=== PATIENT | female | born 1945 | race Caucasian/White ===

== ENCOUNTER 2017-10-20 05:25 | Inpatient (IN) | payer OTHER ==
[2017-10-11 13:24] LABS: HEMATOCRIT 40.8 % (37.0-47.0); HEMOGLOBIN 13.7 gm/dL (12.0-15.0); MCH 31.1 pg (26.0-34.0); MCHC 33.6 g/dL (28.0-37.0); MCV 92.6 fL (80.0-100.0); RBC 4.4 mil/uL (4.20-5.00); RDW 12.2 % (10.5-14.5); URINE BILIRUBIN NEGATIVE (Negative); URINE BLOOD NEGATIVE (Negative); URINE CLARITY CLEAR; URINE COLOR YELLOW; URINE GLUCOSE-RANDOM* NEGATIVE (Negative); URINE KETONES NEGATIVE (Negative); URINE LEUKOCYTES-REFLEX NEGATIVE (Negative); URINE NITRITE-REFLEX NEGATIVE (Negative); URINE PROTEIN (DIPSTICK) NEGATIVE (Negative); URINE UROBILINOGEN 0.2 E.U./dl (0.2-1.0); WBC 4.9 thou/uL (4.0-11.0)
[2017-10-11 13:31] LABS: CALCIUM 9.6 mg/dL (8.5-10.1); POTASSIUM 4.1 mmol/L (3.5-5.1)
[2017-10-11 13:37] LABS: PROTIME 9.9 Seconds (9.3-11.4)
[2017-10-20] VITALS (9 sets, daily range): BP systolic 111–153; BP diastolic 55–87
[~2017-10-20] VITALS: Ht 160 cm; Wt 103.9 kg
--- NOTE | ~2017-10-20 | O ---
[facility] [place] [address] OPERATIVE REPORT Name: SHAEUSEBIO Chaz Room #: 412-P [facility] IN M.R.#: [id number] Admission: 10/20/17 Attend Phys: Cali Bowie Discharge: 10/21/17 Date of : 47 Report #: [id number] THIS REPORT FOR: //name// CC: Mello Wray DATE OF SERVICE: 10/20/2017 PREOPERATIVE DIAGNOSES: Right shoulder osteoarthritis with biceps tendinopathy. POSTOPERATIVE DIAGNOSES: Right shoulder osteoarthritis with biceps tendinopathy. PROCEDURE PERFORMED: Right total shoulder arthroplasty with open biceps tenodesis. SURGEON: Cali Wray M.D. GUEST SERVICES COORDINATOR: Suzie Hennessy PA-C. ANESTHESIA: General with preoperative indwelling interscalene block . FLUIDS: 1000 mL crystalloid. ESTIMATED BLOOD LOSS: Approximately 50 mL. IMPLANTS UTILIZED: DePuy Global Unite stem and proximal body size 10, 135 degree; 48 mm x 18 mm eccentric humeral head and a 44-mm anchor peg glenoid. DESCRIPTION OF PROCEDURE: After proper identification of the patient and operative site in the preoperative holding area, the operative site was signed by myself. Prophylactic antibiotics were given. The patient elected to receive an indwelling interscalene block catheter after reviewing the risks, benefits, alternatives and potential complications with anesthesia. After a satisfactory block, the patient was brought back to the operative suite; and after induction of satisfactory general endotracheal anesthesia, the patient was carefully positioned in the beach chair position with head of the bed elevated to approximately 40 degrees. Care was taken to position the neck in neutral position. The right shoulder was sterilely prepped and draped in the usual manner and final draping was with Ioban. Anterior deltopectoral approach was planned. A FunCaptcha limb positioning system was utilized throughout the entire procedure. Qualified night assistant was utilized throughout the entire procedure to aid in patient limb positioning, visualization and retraction of the soft tissues, instrument passage, closure and sling application. [address] [address] OPERATIVE REPORT Name: EUSEBIO DALTON Room #: 412-P [facility] IN M.R.#: [id number] Admission: 10/20/17 Attend Phys: Cali Bowie Discharge: 10/21/17 Date of : 47 Report #: [id number] Anterior deltopectoral approach was created. Full thickness skin flaps were developed. Cephalic vein was identified and retracted medially. The subdeltoid space was carefully opened. The deltoid was retracted with a [place] deltoid retractor. Significant biceps tenosynovitis and swelling was appreciated. It was tenodesed to the undersurface of the pectoralis major. It was followed proximally. Bicipital groove was opened as well as the rotator interval. At this point, the anterior circumflex vessels were identified, ligated and cauterized. The lesser tuberosity osteotomy was performed with a thin osteotome. Subscapularis was elevated. Very thickened anterior capsule was noted and this was resected carefully under direct visualization. Care was taken to identify and protect the axillary nerve throughout the entire procedure. Peripheral humeral head osteophytes were carefully removed and a humeral head osteotomy was planned at 135 degrees using a cutting guide. Supraspinatus, infraspinatus and teres minor were intact. Head measured 48 mm on the backtable and diameter of 18 mm head best recreated the proximal humeral anatomy. Any remaining peripheral spurs were carefully removed. The shaft was reamed by hand up to a size 10 stem, which matched the preoperative templating. A size 10 broach was placed. Protection plate was placed. Joint was then reduced and distracted with lamina fitting room operator, where the labrum was removed circumferentially. The capsule anteriorly had been excised and inferiorly released off the glenoid. Again, great care was taken to protect the axillary nerve. Advanced degenerative changes were noted on both sides of the joint. A guide pin was then inserted into the glenoid vault. Position was verified by digital palpation and the glenoid was reamed to a size 44. Any remaining soft tissue was carefully removed around the humerus. Step drill was utilized. Central peg was contained. Bone graft was saved for bone grafting peg component of the prosthesis later in the procedure. At this point, the peripheral pegs were drilled. Derotation pegs were utilized. These instruments were then removed. The joint was thoroughly irrigated with normal saline. A 44 mm trial fit and was well seated. This was removed and the trial was removed. This area was thoroughly irrigated with normal saline. FloSeal was utilized. Bone graft and cement was prepared on the back table. FloSeal was irrigated out. This area was then dried out with suction and the peripheral pegs were cemented with the Tuohy syringe under pressurization. Any excess bone cement was removed. Central peg had been bone grafted. Implant was carefully impacted into position and held firmly in place until it was fully seated and the cement had cured. Glenoid implant was stable. Next, the humerus was approached and the head was placed. A 48 x 18 eccentric head provided the best overall fit and had approximately 50% translation posteriorly. Trial implants were removed. The Global Unite brosteotome was inserted. It was seated. Anterior drill holes were placed for four #2 FiberWires that were carefully positioned through the bicipital groove and lesser tuberosity. The inferior two were around the prosthesis which had been assembled on the back table. This was then impacted into position. Head was [facility] [address] [place] [address] OPERATIVE REPORT Name: EUSEBIO DALTON Room #: 412-P [facility] IN M.R.#: [id number] Admission: 10/20/17 Attend Phys: Cali Bowie Discharge: 10/21/17 Date of : 47 Report #: [id number] placed and shoulder was trialled and everything was in satisfactory position. At this point, the subscapularis was reduced after the joint was thoroughly irrigated with antibiotic irrigant. The four #2 FiberWires were passed in a modified Brian-Dinh technique and then the lateral portion of the rotator interval was closed in a simple [id number] manner with #2 FiberWire. The patient could easily be externally rotated to 45 degrees without any undue tension on the repair construct. The wound was again thoroughly irrigated with antibiotic irrigant. One gram of vancomycin powder was utilized, half of this deep and half of it more superficial in closure. Deltopectoral fascia was closed with 0 Vicryl and 2-0 Vicryl. The subcutaneous tissue followed by running 4-0 Monocryl and Dermabond was used to seal the incision. Sterile dressing was applied. The patient will be placed in a sling and abduction pillow for 4 weeks postoperatively. At the time of dictation, the patient was in the operative suite in stable condition with anticipated discharge to recovery room in a stable condition. <ELECTRONICALLY SIGNED> By: Cali Wray MD 10/25/17 1117 1011 1102 Cali Wray MD /nt
--- NOTE | ~2017-10-20 | H ---
[facility] [place] [address] HISTORY AND PHYSICAL Name: EUSEBIO DALTON Room #: 412-P [facility] IN M.R.#: [id number] Admission: 10/20/17 Attend Phys: Cali Bowie Discharge: Date of : 47 Report #: [id number] THIS REPORT FOR: //name// CC: Mello Wray CHIEF COMPLAINT: Right shoulder pain. HISTORY OF PRESENT ILLNESS: The patient complains of persistent right shoulder pain, catching, locking, popping and grinding despite conservative treatments including rest, oral anti-inflammatories. The patient reports that the pain is worse with using it and better with rest. PAST MEDICAL HISTORY: Significant for arthritis. PAST SURGICAL HISTORY: Significant for right total knee arthroplasty, bilateral cataracts, right foot surgery and total hysterectomy. REVIEW OF SYSTEMS: GENERAL: The patient denies fevers, chills, malaise. MUSCULOSKELETAL: The patient complains of joint pain, aches, popping. PULMONARY: The patient denies any recent cough, shortness of breath or chest pain. The remainder of the review of systems was negative. FAMILY HISTORY: Significant for arthritis, heart disease. SOCIAL HISTORY: The patient is right handed. She is , lives alone. Denies any alcohol use. The patient reports that she exercises approximately 5-7 hours per week. MEDICATIONS: Home medications include Tylenol PM, PreserVision, aspirin, CoQ10, omeprazole, Mobic, lovastatin and duloxetine. ALLERGIES: The patient has no known drug allergies. PHYSICAL EXAMINATION: VITAL SIGNS: Height 67 inches, weight 230 pounds, BMI 36. GENERAL: The patient is awake, alert and oriented, in no acute distress. HEENT: Pupils are equal, round, reactive to light. Extraocular movements intact. NECK: Supple, without lymphadenopathy, no bruit. CHEST: Clear to auscultation bilaterally. HEART: Regular rate and rhythm without murmur. ABDOMEN: Soft and nontender to palpation. RIGHT SHOULDER AND EXTREMITIES: Neurovascularly intact. Skin is nontender, dry and intact. Range of motion, flexion to 80 degrees, passive flexion to 120 degrees, external rotation 20 degrees, internal rotation measured to the [facility] [address] [address] HISTORY AND PHYSICAL Name: EUSEBIO DALTON Room #: [facility] IN [facility].#: [id number] Admission: 10/20/17 Attend Phys: Cali Bowie Discharge: Date of : 47 Report #: [id number] crest. Glenohumeral crepitus noted on exam. Tenderness to palpation of the anterolateral shoulder and posterolateral shoulder. No tenderness to palpation of the sternoclavicular joint, clavicle, acromioclavicular joint, acromion, rhomboids or proximal humerus. Supraspinatus strength 5-/5, external rotation strength 5-/5, internal rotation/abdominal compensation strength 5/5, deltoid strength is 5/5. There is positive Neer and positive Davis test. RADIOGRAPHS: Previous radiographs were reviewed and show no significant degenerative change of the acromioclavicular joint. There is type 2 acromion and glenohumeral joint is well reduced with complete loss of glenohumeral joint space noted and a large inferior humeral osteophyte noted as well. IMAGING: Report of the right shoulder performed on 09/19/2017 at [facility] shows severe glenohumeral joint OA. Circumferential labral degeneration or tearing. Generalized rotator cuff tendinosis. Partial subscapularis tendon tear. Moderate joint effusion. Subchondral signal at the superior medial humeral head is likely degenerative. Subchondral osteonecrosis is considered less likely. ASSESSMENT: Right shoulder pain, osteoarthritis; partial thickness subscapularis tear and biceps tendinopathy. PLAN: MRI findings were reviewed in detail with the patient. I have reviewed continued nonoperative management versus operative intervention. The patient elected to proceed with a right total shoulder arthroplasty. The risks, benefits and alternatives to treatment were reviewed. The short term period of hospitalization was reviewed. We have discussed anticoagulation and DVT/PE prophylaxis. We discussed potential time in a sling, need for physical therapy and potential time off work. Preoperatively, the patient will use benzoyl peroxide soap for 7 days preop. Pain management was discussed and pain medicines will be given on the day of surgery. Your anesthesiologist will discuss the utilization of a nerve block. An arthroplasty handout was also provided to the patient and the surgery was demonstrated using a shoulder model. We discussed the need for prophylactic antibiotic treatment for invasive dental procedures postoperatively as well as the need for serial radiographic monitoring every 1-2 years. The patient would like to proceed with above-mentioned procedures. Questions were encouraged, all were answered to the best of my abilities. The patient demonstrated understanding of the above-noted discussion and will plan on proceeding with right total shoulder arthroplasty as scheduled. <ELECTRONICALLY SIGNED> By: MINNIE Wade 10/21/17 0939 0739 0825 MINNIE Wade /nt
--- NOTE | ~2017-10-20 | EKG ---
[place] [address] [facility] [facility] [place] [address] ELECTROCARDIOGRAM REPORT Name: EUSEBIO DALTON [id number] Admission: Attend Phys: Cali Bowie Discharge: Date of : 47 Report #: [id number] THIS REPORT FOR: //name// [facility] [place] [place] Test Date: 2017-10-11 Test Time: 13:01:11 Pat Name: EUSEBIO DALTON Department: Room: Gender: F Media Technician: MAICO BATISTA : 1945 Requested By: Cali Wray Order Number: [id number] MD: Rickie Brooks Measurements Intervals [place] Rate: 74 P: 39 WA: 146 QRS: -45 QRSD: 101 T: 12 QT: 413 QTc: 459 Interpretive Statements Sinus rhythm Left anterior fascicular block Abnormal R-wave progression, late transition Left ventricular hypertrophy No previous ECG available for comparison Electronically Signed On 10-11-2017 16:16:36 EDGER SAW OPERATOR by Rickie Brooks [email or web address] <ELECTRONICALLY SIGNED> By: Rickie Brooks MD, [facility] 10/11/17 1616 1301 1301 Rickie Brooks MD, [facility] /EPI
[~2017-10-20 05:25] MED LIST: APAP650 PO; AREDS-2 PO; ASPIR 8181 MG PO; CO Q-10100 MG PO; CYMBALTA60 MG PO; ERGOCALCIF50000 UNIT PO; HYDROCODONE-AP1 EAC6 PO; LOVASTATIN 20 M20 MG PO; MOBIC15 MG PO; OMEPRAZOLE 20 M20 M1 PO
[2017-10-21 04:31] LABS: HEMATOCRIT 31.1 % (37.0-47.0); HEMOGLOBIN 10.6 gm/dL (12.0-15.0)
[2017-10-21 04:51] LABS: POTASSIUM 3.9 mmol/L (3.5-5.1)
[2017-10-21 05:00] VITALS: BP 131/66
[2017-10-21 09:23] VITALS: BP 145/67
[2017-10-21 13:12] VITALS: BP 145/67
== END 2017-10-21 14:05 | disposition home or self-care (01) | DRG 483 ==
LOC: TBA 05:25 → OR 05:25 → PRE 08:42 → EDSTATUS 09:58 → OR 10:01 → 4N 12:10
PROVIDERS: Orthopaedic Surgery Sports Medicine; Physician Assistant Surgical
DX: M19.011 Primary osteoarthritis, right shoulder (principal); M75.20 Bicipital tendinitis, unspecified shoulder; Z96.651 Presence of right artificial knee joint; S46.011A Strain of muscle(s) and tendon(s) of the rotator cuff of right shoulder, initial encounter; E78.5 Hyperlipidemia, unspecified; F32.9 Major depressive disorder, single episode, unspecified; J45.909 Unspecified asthma, uncomplicated; K21.9 Gastro-esophageal reflux disease without esophagitis; Z88.2 Allergy status to sulfonamides; Z79.899 Other long term (current) drug therapy; Z28.21 Immunization not carried out because of patient refusal; Z98.42 Cataract extraction status, left eye; Z98.41 Cataract extraction status, right eye; Z90.710 Acquired absence of both cervix and uterus; Z82.49 Family history of ischemic heart disease and other diseases of the circulatory system; Z82.61 Family history of arthritis
CPT/HCPCS: 10790; 50010; 50101; 50172; 50386; 50417; 50697; 50733; 50935; 51751; 51771; 52138; 53000; 53078; 54118; 55435; 56521; 56524; 56525; 56526; 56530; 57095; 62110; 62900

== ENCOUNTER → 2020-01-20 | Outpatient (CLI) | payer OTHER ==
[~2020-01-20] MED LIST changes: +ADULT LOW DOSE81 MG PO; +CALCIUM WITH V1 EAC1 PO; +CRESTOR40 MG PO; +HYDROCODON-ACE1 EAC7 PO; +LOVASTATIN40 MG PO; +MELOXICAM15 MG PO; +PRESERVISION A1 EAC2 PO; +TYLENOL EXTRA500 MG PO; +TYLENOL PM EX-1 EACH PO; +VITAMIN D325 MC5 PO; +WOMEN'S 50 PLU1 EAC1 PO
== END ==
LOC: LAB 01-17 10:07
PROVIDERS: ATTEND Student in an Organized Health Care Education/Training Program
DX: Z01.812 Encounter for preprocedural laboratory examination (principal); Z11.59 Encounter for screening for other viral diseases

== ENCOUNTER 2020-01-22 10:32 | Day surgery (SDC) | payer OTHER ==
[2020-01-09 14:48] LABS: URINE BILIRUBIN NEGATIVE (Negative); URINE BLOOD NEGATIVE (Negative); URINE COLOR YELLOW; URINE GLUCOSE-RANDOM* NEGATIVE (Negative); URINE KETONES 1+ (Negative); URINE LEUKOCYTES-REFLEX NEGATIVE (Negative); URINE NITRITE-REFLEX NEGATIVE (Negative); URINE PROTEIN (DIPSTICK) TRACE (Negative); URINE SPECIFIC GRAVITY 1.025 (1.005-1.035)
[2020-01-09 14:50] LABS: URINE CLARITY SL HAZY
[2020-01-09 15:24] LABS: HEMATOCRIT 39.8 % (37.0-47.0); HEMOGLOBIN 13.2 gm/dL (12.0-15.0); MCH 31.9 pg (26.0-34.0); MCHC 33.3 g/dL (28.0-37.0); MCV 95.7 fL (80.0-100.0); RBC 4.15 mil/uL (4.20-5.00); RDW 12.4 % (10.5-14.5); WBC 7.8 thou/uL (4.0-11.0)
[2020-01-09 15:36] LABS: ALBUMIN 4.1 g/dL (3.4-5.0); CREATININE 1.3 mg/dL (0.6-1.0); POTASSIUM 4.8 mmol/L (3.5-5.1)
--- NOTE | 2020-01-09 16:12 | EKG ---
[facility] [place] [address] ELECTROCARDIOGRAM REPORT Name: EUSEBIO DALTON Room #: PRE IN ..#: [id number] Admission: Attend Phys: Dean Manzanares MD Discharge: Date of : 47 Report #: [id number] THIS REPORT FOR: cc: Mello Zhang MD, David L. MD Couchonnal, Luis F. MD ~ THIS REPORT FOR: //name// [facility] Test Date: 2020-01-09 Test Time: 15:12:54 Pat Name: EUSEBIO DALTON Department: Room: Gender: Copy Coordinator: MARIE : 1945 Requested By: Dean Manzanares Order Number: [id number] : Leonel Herrera Measurements Intervals [place] Rate: 71 P: 23 MN: 143 QRS: -42 QRSD: 98 T: 7 QT: 405 QTc: 441 Interpretive Statements Sinus rhythm Left anterior fascicular block Abnormal R-wave progression, late transition Left ventricular hypertrophy Compared to ECG 10/11/2017 13:01:11 No significant changes Electronically Signed On 01-09-2020 16:10:00 CDT by Leonel Herrera [email or web address] <ELECTRONICALLY SIGNED> By: Leonel Herrera MD 01/09/20 1610 151 151 Leonel Herrera MD /EPI
[~2020-01-22] VITALS: Ht 162.6 cm; Wt 103.9 kg
[~2020-01-22 10:32] MED LIST changes: -HYDROCODON-ACE1 EAC7 PO
[2020-01-22 12:34] VITALS: BP 166/76
[2020-01-22 16:30] VITALS: BP 148/88
[2020-01-22 17:08] VITALS: BP 146/65
--- NOTE | 2020-01-22 18:19 | NUR ---
PATIENT TRANSFER FROM PACU TO 439 AT 1630 POST LEFT KNEE RELPACEMENT.ALERT. DROWSE. DENIES [PAIN. COOLING SYSTEM IN PLACE. AFEBRILE.VSS. WILL KEEP MONIOR.
[2020-01-22 18:36] VITALS: BP 131/67
[2020-01-22 19:10] VITALS: BP 138/67
[2020-01-23 00:30] VITALS: BP 123/95
[2020-01-23 05:46] LABS: HEMATOCRIT 35.3 % (37.0-47.0); HEMOGLOBIN 11.7 gm/dL (12.0-15.0); MCH 32.1 pg (26.0-34.0); MCHC 33.2 g/dL (28.0-37.0); MCV 96.8 fL (80.0-100.0); RBC 3.65 mil/uL (4.20-5.00); RDW 12.4 % (10.5-14.5)
[2020-01-23 08:43] VITALS: BP 124/53
--- NOTE | 2020-01-23 10:30 | NUR ---
ASSESSMENT: CM REVIEWED CHART. PT IS ALERT AND ORIENTED X4. PT REPORTS THAT SHE LIVES AT HOME ALONE BUT THAT HER SISTER IS COMING TO STAY WITH HER FOR A WEEK. PT REPORTS SHE HAS NO STEPS TO ENTER HER HOME OR ONCE INSIDE. PT REPORTS SHE ALREADY HAS A CANE AND WALKER AT HOME. PT REPORTS THAT SHE HAS A GRAB BAR AND SHOWER CHAIR. PT REPORTS SHE HAS OUTPATIENT THERAPY ARRANGED AT [facility] TO START ON FRIDAY 01/26. CM NOTIFIED PT TO MAKE SURE SHE DOES NOT DISCHARGE WITHOUT SCRIPT FOR OUTPATIENT PT/OT. PT REPORTS SHE WILL HAVE NO NEEDS FROM CM PRIOR TO DISCHARGE. CM WILL CONTINUE TO FOLLOW TO ASSIST NEEDED. PLANS ARE TO POSSIBLY DISCHARGE TODAY IF SHE DOES WELL WITH THERAPY.
--- NOTE | 2020-01-23 12:09 | O ---
[facility] [place] [address] OPERATIVE REPORT Name: EUSEBIO DALTON Room #: 439-P [facility]..#: [id number] Admission: 01/22/20 Attend Phys: Dean Manzanares MD Discharge: Date of : 47 Report #: [id number] THIS REPORT FOR: cc: Mello Zhang MD, David L. MD Abraham,Dean Hudson MD ~ CC: Mello Manzanares DATE OF SERVICE: 01/22/2020 PREOPERATIVE DIAGNOSIS: Left knee valgus osteoarthritis. POSTOPERATIVE DIAGNOSIS: Left knee valgus osteoarthritis. PROCEDURE: Left total knee arthroplasty using Navio robotic assistance. SURGEON: Dean Manzanares M.D. AGRICULTURE RESEARCH DIRECTOR: Joan Box PA-C. INDICATIONS FOR AGRICULTURE RESEARCH DIRECTOR: Throughout the case, extensive retraction and manipulation of the knee was required. This was afforded to me by my anesthesiologists' assistant. ANESTHESIA: LMA with an adductor canal block. IMPLANTS: Size 5 Journey II BCS cobalt chrome femur, size 3 tibia, size 9 constrained polyethylene and size 32 patella. TOURNIQUET TIME: 57 minutes. ESTIMATED BLOOD LOSS: 25 mL. COMPLICATIONS: None. SPECIMENS: None. CONDITION UPON LEAVING THE OPERATING ROOM: Stable. INDICATIONS FOR PROCEDURE: The patient is a 74-year-old female with left knee valgus osteoarthritis. She had failed conservative measures for this and after discussion with her, she elected for left total knee arthroplasty. DESCRIPTION OF PROCEDURE: Risks, benefits, alternatives, complications were discussed in detail with the patient including but not limited to risk of anesthesia, risk of damage to nerves, arteries, blood vessels, risk for [facility] [address] [place] [address] OPERATIVE REPORT Name: EUSEBIO DALTON Room #: 439-P [facility] M.R.#: [id number] Admission: 01/22/20 Attend Phys: Dean Manzanares MD Discharge: Date of : 47 Report #: [id number] infection, bleeding, risk for continued knee pain, need for reoperation. Informed consent was obtained from the patient. Left knee was appropriately marked in the preoperative holding area. IV Ancef was given for preoperative antibiotics. She was brought to the operating room and placed in supine position on operating room table. LMA anesthesia was induced without complication. Tourniquet was placed on the left thigh. Left lower extremity was prepped and draped in normal sterile fashion. Timeout was performed properly identifying the patient and procedure as well as the instrumentation and implants. All in the operating room were in agreement. Left lower extremity was exsanguinated, tourniquet was inflated. Tourniquet time was 57 minutes. Standard midline approach to the knee was made with 10 blade through the skin. Dissection was taken down sharply to the fascia. Deep flaps were developed medially and laterally. Fresh 10 blade was used to make a medial parapatellar arthrotomy and the knee was inspected. There was severe valgus osteoarthritis of the knee. ACL and PCL were removed sharply. Reference pins were placed in the femur and the tibia. The knee was then digitally mapped using the [employer] robotic system. Intraoperative plan was made. We sized the size 5 femur with a size 3 tibia and a size 10 spacer. After acceptance of the intraoperative plan, the distal femoral cut was made with a Navio bur. Distal femoral cutting block was pinned in place and distal femoral cuts were made. After this, attention was turned to the tibia. The remainder of the menisci removed with Bovie cautery. Tibial resection guide was pinned in place and tibial resection was made. Flexion and extension gaps were then checked and found to have good balance laterally in flexion and extension with a slight laxity medially. It was felt we could make up for this with a constrained implant. The tibia was sized, found to be a size 3. Size 3 tibial trial was placed, pinned and punched. Size 5 femoral trial was placed and the box cut was made. This was then trialled with size 9 polyethylene. Knee was taken through range of motion, found to be stable, found to have a millimeter laxity medially and laterally with a constrained liner. A 9 mm was resected from the posterior surface of the patella and a size 32 patellar trial button was placed. Knee was taken through range of motion, found to be stable, found to have good patellar tracking. Trial components were removed. Bony ends were thoroughly irrigated with normal saline. A final size 3 tibia, size 5 Journey II BCS cobalt chrome femur and a size 32 patella were cemented in place using standard cementation techniques. While the cement cured, a periarticular injection consisting of morphine, ropivacaine, epinephrine and Toradol was placed around the knee joint capsule. After the cement cured, the tourniquet was deflated. Hemostasis was obtained with Bovie cautery. Final size 9 constrained polyethylene was placed. A gram of vancomycin was placed deep in the joint. Fascia was closed with 0 Vicryl, skin was closed with 2-0 Vicryl, skin staple and a HEIDE dressing was [address] [address] OPERATIVE REPORT Name: EUSEBIO DALTON Room #: 439-P [facility]#: [id number] Admission: 01/22/20 Attend Phys: Dean Manzanares MD Discharge: Date of : 47 Report #: [id number] applied. The patient tolerated this procedure well and went to recovery room under care of anesthesia postoperatively. <ELECTRONICALLY SIGNED> By: Dean Manzanares MD 01/23/20 1209 1700 1740 Dean Manzanares MD /nt
[2020-01-23 14:01] VITALS: BP 124/53
--- NOTE | 2020-01-23 14:10 | NUR ---
ASSUMED CARE OF THE PT AT 0700. PT IS STANDBY ASSIST. PAIN CONTROLLED BY PAIN MEDS, SEE EMAR. ORAL CARE IN THE AFTERNOON. POLAR PACK, HEIDE, SCD IN PLACE, VANNA HOSE FOR R LEG IS MISSING, ORDERED ANOTHER VANNA HOSE. L HAND IV DRY AND INTACT. PT WILL D/C TODAY. FALL PRECAUTIONS IN PLACE, BED IN THE LOWEST POSITION AND CALL LIGHT IS WITHIN REACH. WILL CONTINUE TO MONITOR THE PT.
== END 2020-01-23 15:12 | disposition home or self-care (01) ==
LOC: TBA 10:32 → OR 10:32 → TBA 14:04 → EDSTATUS 15:22 → TBA 15:22 → OR 15:26 → 4S 16:15 → OR 01-23 15:12
PROVIDERS: ATTEND Orthopaedic Surgery
DX: M17.12 Unilateral primary osteoarthritis, left knee (principal); M25.562 Pain in left knee; E78.5 Hyperlipidemia, unspecified; K21.9 Gastro-esophageal reflux disease without esophagitis; Z96.651 Presence of right artificial knee joint; Z98.890 Other specified postprocedural states; Z98.41 Cataract extraction status, right eye; Z98.42 Cataract extraction status, left eye; Z90.710 Acquired absence of both cervix and uterus; Z88.2 Allergy status to sulfonamides; Z79.899 Other long term (current) drug therapy; Z11.59 Encounter for screening for other viral diseases
CPT/HCPCS: 10102; 50010; 50101; 50415; 50954; 51130; 51225; 51320; 51412; 52001; 52282; 53000; 53078; 56527; 56528; 57095; 57103; 57110; 57127; 57180; 57952; 62110; 62900; 64039; 70005

== ENCOUNTER 2020-01-25 23:17 | Inpatient (IN) | payer OTHER ==
[~2020-01-25] VITALS: Ht 162.6 cm; Wt 111.0 kg
[2020-01-25 23:20] VITALS: BP 136/88
[2020-01-26 00:18] LABS: ABSOLUTE NEUTROPHILS 7.1 thou/uL (1.4-8.2); BASOPHILS 0.7 % (0.0-2.0); EOSINOPHILS 2.3 % (0.0-3.0); HEMATOCRIT 29.8 % (37.0-47.0); HEMOGLOBIN 10.1 gm/dL (12.0-15.0); LYMPHOCYTES 14.7 % (24.0-44.0); MCH 32.6 pg (26.0-34.0); MCHC 33.9 g/dL (28.0-37.0); MCV 96.2 fL (80.0-100.0); PLATELET COUNT 201 thou/uL (150-400); POLYS 73.3 % (36.0-66.0); RDW 12.7 % (10.5-14.5); WBC 9.7 thou/uL (4.0-11.0)
[2020-01-26 00:21] LABS: CALCIUM 8.4 mg/dL (8.5-10.1); POTASSIUM 4.5 mmol/L (3.5-5.1)
[2020-01-26 00:27] LABS: ALBUMIN 2.8 g/dL (3.4-5.0); DIRECT BILIRUBIN 0.1 mg/dL (<0.1-0.2); TOTAL BILIRUBIN 0.5 mg/dL (0.2-1.0); TOTAL PROTEIN 5.6 g/dL (6.4-8.2)
[2020-01-26 00:45] LABS: URINE BILIRUBIN NEGATIVE (Negative); URINE BLOOD NEGATIVE (Negative); URINE CLARITY CLEAR; URINE COLOR YELLOW; URINE GLUCOSE-RANDOM* NEGATIVE (Negative); URINE KETONES TRACE (Negative); URINE LEUKOCYTES-REFLEX NEGATIVE (Negative); URINE NITRITE-REFLEX NEGATIVE (Negative); URINE PROTEIN (DIPSTICK) TRACE (Negative); URINE SPECIFIC GRAVITY 1.025 (1.005-1.035)
[2020-01-26 05:25] VITALS: BP 105/48
[2020-01-26 05:34] VITALS: BP 103/49
[2020-01-26 06:27] LABS: HEMATOCRIT 27.2 % (37.0-47.0); HEMOGLOBIN 9.3 gm/dL (12.0-15.0); MCH 32.8 pg (26.0-34.0); MCHC 34.2 g/dL (28.0-37.0); RBC 2.83 mil/uL (4.20-5.00); RDW 12.5 % (10.5-14.5)
[2020-01-26 06:35] LABS: CALCIUM 8.6 mg/dL (8.5-10.1)
[2020-01-26 08:04] VITALS: BP 141/58
--- NOTE | 2020-01-26 11:03 | EKG ---
[facility] [place] [address] ELECTROCARDIOGRAM REPORT Name: EUSEBIO DALTON Room #: 459-P ADM IN M.R.#: [id number] Admission: 01/26/20 Attend Phys: Matthew Rust MD Discharge: Date of : 47 Report #: [id number] THIS REPORT FOR: cc: FAM - Family physician unknown FAM - Family physician unknown Leonel Herrera MD ~ THIS REPORT FOR: //name// [facility] ED Test Date: 2020-01-25 Test Time: 23:36:18 Pat Name: EUSEBIO DALTON Department: Room: [facility] Gender: F Leak Inspector: STOLED : 1945 Requested By: Love Treadwell Order Number: [id number] MD: Leonel Herrera Measurements Intervals [place] Rate: 100 P: 49 MA: 135 QRS: -37 QRSD: 98 T: 27 QT: 349 QTc: 451 Interpretive Statements Sinus tachycardia Abnormal R-wave progression, late transition Left ventricular hypertrophy Compared to ECG 01/09/2020 15:12:54 Sinus rhythm no longer present Left anterior fascicular block no longer present Electronically Signed On 01-26-2020 11:02:58 CDT by Leonel Herrera [email or web address] <ELECTRONICALLY SIGNED> By: Leonel Herrera MD 01/26/20 1102 2336 2336 Leonel Herrera MD /EPI
[2020-01-26 11:28] VITALS: BP 106/68
[2020-01-26 15:53] VITALS: BP 126/55
[2020-01-26 16:45] LABS: HEMATOCRIT 26.5 % (37.0-47.0)
--- NOTE | 2020-01-26 18:36 | NUR ---
PT ADMITTED FROM ER AT 0600AM FOR WEALNESS AND SOB , PT IS A&OX3, PT IS ON O2 2L/MIN/NC, PT'S VS AND O2SAT ARE STABLE, PT HAS STARTED IV ABX , PT 'S L KNEE SURGICAL DRESSING IS CDI , PT DENIES PAIN AND SOB AT THIS TIME, PT DOES NOT HAVE BM MORE THEN 3 DAYS, X-RAY KUB RESULTS SHOW NO CONSTIPATION , BUT PT HAS MEDICATIONS FOR BM, RN WILL REPORT TO NEXT SHIFT TO KEEP EYE ON PT.
[2020-01-26 19:18] VITALS: BP 127/38
--- NOTE | 2020-01-27 02:54 | NUR ---
PATIENT WAS SEEN ON BEDREST THIS SHIFT, NO SPECIFIC CONCERNS AT THIS TIME. PT IS ALERT AND ORIENTED X4, DOES NOT COMPLAIN OF ANY PAIN. VANNA HOSE WAS ON THE L LEG, SO RN RE APPLIED THE HOSE UP TO THE KNEE. PATIENT IS ON 2L OF O2 AND TOLERATING WELL. PASSING GAS BUT NO BM. LACTULOSE WAS GIVEN PER ORDER. PER PT SHE HAD WATERY STOOL THIS AM BUT NONE SINCE. PT STATED THAT SHE WILL CALL THE STAFF FOR ASSISTANCE WHEN NEEDING TO PASS A BOWEL MOVEMENT. OCCULT STOOL WILL BE TAKEN THEN.
[2020-01-27 04:14] VITALS: BP 115/54
[2020-01-27 07:21] VITALS: BP 119/59
[2020-01-27 16:33] VITALS: BP 135/76
[2020-01-27 16:35] LABS: ABSOLUTE NEUTROPHILS 4.7 thou/uL (1.4-8.2); BASOPHILS 0.4 % (0.0-2.0); EOSINOPHILS 4.9 % (0.0-3.0); HEMATOCRIT 26.5 % (37.0-47.0); LYMPHOCYTES 14.3 % (24.0-44.0); MCH 32.8 pg (26.0-34.0); MCHC 33.9 g/dL (28.0-37.0); MCV 96.6 fL (80.0-100.0); MONOCYTES 11.5 % (1.0-8.0); PLATELET COUNT 225 thou/uL (150-400); POLYS 68.9 % (36.0-66.0); RBC 2.74 mil/uL (4.20-5.00); RDW 12.6 % (10.5-14.5); WBC 6.8 thou/uL (4.0-11.0)
[2020-01-27 16:50] LABS: ALBUMIN 2.4 g/dL (3.4-5.0); CALCIUM 8.5 mg/dL (8.5-10.1); CREATININE 0.9 mg/dL (0.6-1.0); PHOSPHORUS 2.5 mg/dL (2.5-4.9); TOTAL BILIRUBIN 0.7 mg/dL (0.2-1.0); TOTAL PROTEIN 5.2 g/dL (6.4-8.2)
[2020-01-27 19:41] VITALS: BP 136/74
--- NOTE | 2020-01-27 20:38 | NUR ---
PT IS A&OX3, PT HAS WORKING WITH PT, PT IS OFF O2 TODAY, PT'S VS ARE STABLE, PT IS CONTINUING IV ABX , PT DENIES PAIN AND SOB .
[2020-01-28 04:53] VITALS: BP 129/53
[2020-01-28 06:11] LABS: ABSOLUTE NEUTROPHILS 4.3 thou/uL (1.4-8.2); BASOPHILS 0.7 % (0.0-2.0); EOSINOPHILS 5.9 % (0.0-3.0); HEMATOCRIT 27.2 % (37.0-47.0); HEMOGLOBIN 9.3 gm/dL (12.0-15.0); LYMPHOCYTES 21.8 % (24.0-44.0); MCH 32.9 pg (26.0-34.0); MCHC 34.1 g/dL (28.0-37.0); MCV 96.5 fL (80.0-100.0); MONOCYTES 11.8 % (1.0-8.0); PLATELET COUNT 265 thou/uL (150-400); POLYS 59.8 % (36.0-66.0); RBC 2.82 mil/uL (4.20-5.00); RDW 12.7 % (10.5-14.5); WBC 7.2 thou/uL (4.0-11.0)
--- NOTE | 2020-01-28 07:24 | NUR ---
ASSUMED PT CARE AROUND 193. AXOX4. CALLS PROPERLY FOR ASSISTANCE. L KNEE DRESSING C.D.I WITH POLAR PACK. IV SITE ROTATED. NO S/S ACUTE DISTRESS NOTED OR REPORTED AT THIS TIME. CARE TRANSFERRED TO CHRISTOPH HURTADO AT THIS TIME.
[2020-01-28 07:50] VITALS: BP 165/73
--- NOTE | 2020-01-28 13:29 | NUR ---
PT ADMITTED RELATED TO WEAKNESS AND SOA AFTER RECENT TKA ON 01/21/2020. CM REVIEWED CHART AND SPOKE WITH CARE TEAM. CM CALLED AND SPOKE WITH PT AT BEDSIDE THIS DAY. PT APPEARED TO BE A&0 X4. CM ROLE INTRODUCED. PT INDICATED SHE LIVES IN A [employer] STYLE HOUSE ALONE WITH NO STEPS. PT INICATED HE SISTER HAD BEEN STAYING WITH HER FOLLOWING HER SURGERY DC HOME 01/22. PT INDICATED SHE HAD BEEN SCHEDULED TO START OP PT AT [facility] MON 01/26. PT INIDCATED SHE HAS A CANE AND A FWW FOR USE AT HOME. PT INDICATED SHE WILL SEE TO HOW SHE PROGRESSES AND WHAT THERAPT RECOMMENDES TO DETERMINE NEEDS UPON DC. CM FOLLOWING REGARDING DC PLANNING.
--- NOTE | 2020-01-28 15:49 | NUR ---
Assumed pt care at 7am.Assessment completed.vss.Pt up in the room and to br with therapist early this am.Fair endurance noted.Pt tolerated meds and diet. Dr Santana here,order noted.Pt was up in chair for lunch and later transfered to bed after working with occ therapist.Jesse drsg intact with polar pack.Pt has 2 bm this shift but refused lactulose at 1400.Resting in bed at present without c/o.Will continue to monitor.
[2020-01-28 16:29] VITALS: BP 140/51
[2020-01-28 19:18] VITALS: BP 142/65
[2020-01-29 05:26] VITALS: BP 150/65
--- NOTE | 2020-01-29 08:21 | NUR ---
PROGRESS PT A/O X 4 PAIN CONTROLLED WITH ORAL PAIN MEDS VOIDING QS, UP TO BSC WITH 1 AND A WALKER. GURJITG C/D/I HEIDE BOX STILL WORKING ICEMAN AND SCD'S IN PLACE PT USING ISP INDEPENDENTLY AND RT TX'S ORDRED CONTINUE TO MONITOR.
--- NOTE | 2020-01-29 08:22 | NUR ---
ASSUMED CARE OF PT AT SHIFT CHANGE, A&0X4, SHE NOTICES FOR THE FIRST TIME THAT SHE HAS A RASH R GROIN, STATES SHES A POSSIBLE D/C TODAY, RATES PAIN IN LEFT KNEE 2/3 UNLESS SHE MOVES HER LEG. SEE SEPARATE INTERVENTIONS FOR ASSESSMENTS. ENCOURAGED PT TO USE CALL LIGHT FOR ANY NEEDS.
--- NOTE | 2020-01-29 11:55 | NUR ---
Nutrition: Seen for BMI > 40 kg/m2. Current BMI 42 kg/m2, high risk class III obesity at CBW 244#. Pt had recent TKA 1 week ago on 01/21. Readmitted with weakness/SOA. Pt is on a heart healthy diet, eating 50-100% of all meals thus far. Dislikes taste, but tolerating food. Explained room service menu and ability to order alternative items - pt plans to do this at dinner. RD offered nutrition education or to help answer any nutrition questions for her health. Pt declined any education needs for healthier eating at home. Just wants to work on getting stronger/better. Encouraged a rich protein source w/ her meals. Low nutrition risk otherwise.
[2020-01-29 13:45] VITALS: BP 106/45
--- NOTE | 2020-01-29 14:54 | NUR ---
PT ADN OT SEEING PT. PT HASN'T INDICATED DEFINITIVE RECOMMENSTION FOR DISCHARGE DISPOSITION OF YET. CM ATTEMTPED PC TO PT THIS AFTERNOON IN EFFORT TO DISCUSS PT'S THOUGHTS AND PREFERENCES FOR SERVICES UPON DC WITH NO ANSWER. CM TO FOLLOW UP WITH PT AT BEDSIDE SHORTLY. CM TO FOLLOW INDICATED WITH DC PLANNING.
[2020-01-29 19:49] VITALS: BP 143/55
[2020-01-30 04:04] VITALS: BP 148/73
--- NOTE | 2020-01-30 05:53 | NUR ---
VSS-AFEBRILE. LUNGS CLEAR-ROOM AIR. PLACED ON 2LNC OVERNIGHT DUE TO SAO2 DROPPING BELOW 92% WHILE SLEEPING. PAIN WELL CONTROLLED WITH IV AND PO PAIN MEDICATION. OOB WITH SBA, GAIT BELT AND WALKER TO USE RESTROOM. ICE TO LEFT KNEE, VANNA HOSE, AND SCD'S IN PLACE. CALLS APPROPRIATELY FOR ANY NEEDED ASSISTANCE.
[2020-01-30 07:08] VITALS: BP 140/59
[2020-01-30] MEDS ORDERED: HYDROCODON-ACE1 EAC7 PO (09:13)
[2020-01-30 11:32] VITALS: BP 140/59
--- NOTE | 2020-01-30 12:49 | NUR ---
PT IS AOX4, VSS, PAIN CONTROLLED WITH ORAL ANALGESIC. PT IS UP WITH ASSIST X1. PT TOLERATING DIET WELL. NURSE WENT OVER DISCHARGE INSTRUCTIONS AND PT VERBALIZED UNDERSTANDING. IV D/C'D. TRANSPORTING HOME.
[2020-01-30 13:55] VITALS: BP 140/59
[2020-01-30 17:02] VITALS: BP 140/59
--- NOTE | 2020-01-30 17:03 | NUR ---
[facility] SPOKE WITH QUENTIN IN INTAKE THEY ARE AT CAPACITY AND WILL DENY REFERRAL. FAXED REFERRAL TO [facility] SPOKE WITH KEVIN IN INTAKE SHE RECEIVED REFERRAL AND WILL ACCEPT PT AT DC FAXED DC ORDERS/SUMMARY RECEIVED CONFIRMATION AND [facility] WILL NOTIFY PT TIME OF VISITS.
== END 2020-01-30 13:02 | disposition home health service (06) | DRG 193 ==
LOC: ER 23:17 → EROBS 01-26 05:14 → 4W 01-26 05:14
PROVIDERS: Emergency Medicine; Nurse Practitioner Family; ADMIT Internal Medicine; ATTEND Internal Medicine
DX: J18.9 Pneumonia, unspecified organism (principal); J96.01 Acute respiratory failure with hypoxia; E46 Unspecified protein-calorie malnutrition; Z68.41 Body mass index [BMI] 40.0-44.9, adult; E66.01 Morbid (severe) obesity due to excess calories; Z96.651 Presence of right artificial knee joint; E78.5 Hyperlipidemia, unspecified; K21.9 Gastro-esophageal reflux disease without esophagitis; Z96.611 Presence of right artificial shoulder joint; G89.29 Other chronic pain; M54.9 Dorsalgia, unspecified; M54.2 Cervicalgia; D64.9 Anemia, unspecified; K59.00 Constipation, unspecified; Z60.2 Problems related to living alone; M81.0 Age-related osteoporosis without current pathological fracture; M17.12 Unilateral primary osteoarthritis, left knee; Z79.82 Long term (current) use of aspirin; Z79.899 Other long term (current) drug therapy; Z98.42 Cataract extraction status, left eye; Z98.41 Cataract extraction status, right eye; Z90.710 Acquired absence of both cervix and uterus; Z88.2 Allergy status to sulfonamides; Z88.8 Allergy status to other drugs, medicaments and biological substances; Z82.3 Family history of stroke; Z81.8 Family history of other mental and behavioral disorders; Z80.0 Family history of malignant neoplasm of digestive organs
CPT/HCPCS: 10040; 10045